=== PATIENT | male | born 1995 | race Caucasian/White ===

== ENCOUNTER 2022-03-10 13:13 | Emergency (ER) | payer BC, SELFPAY ==
[2022-03-10 13:15] VITALS: BP 151/87; PULSE 75; RESP 16; TEMP 36.8; O2SAT 98
--- NOTE | 2022-03-10 13:30 | DI.CT_ITS ---
Exam(s) CT ABDOMEN PELVIS WO EXAM: CT ABDOMEN PELVIS WO CLINICAL HISTORY: RLQ pain. TECHNIQUE: Imaging Protocol: Axial computed tomography images with coronal and sagittal reformatted images were created and reviewed. COMPARISON: No exams were available for comparison FINDINGS: ABDOMEN: Lung Bases: Normal where visualized. Liver: Normal density. No measurable mass. Gallbladder and biliary tract: No radiodense calculus or biliary ductal dilation. Pancreas: Normal density, no abnormal calcifications or inflammatory process. Spleen: Normal. Kidneys: Normal size, contour and axis.No radiodense stones or obstructive uropathy. No masses seen. Adrenal glands: No mass is seen. Lymph nodes: Within normal limits. Abdominal Aorta: Abdominal portion non-dilated. PELVIS: Bladder:Symmetric distention, no gross wall thickening. Bowel: No obstruction or bowel wall thickening. Appendix is unremarkable. Peritoneal cavity: No ascites, collection or mesenteric inflammatory response. No free air. Reproductive organs: Within normal limits. Bones: Within normal limits. Soft Tissues: Within normal limits. IMPRESSION: 1. Unremarkable CT scan of the abdomen and pelvis. 2. Results of this exam have been verbally communicated with provider. RADIATION DOSE DELIVERED: 1,021.4mGy.cm Total DLP DATA REPOSITORY: All CT scans at this facility are submitted to the National Radiology Data Registry (NRDR) Dose Index Registry (DIR) with the [employer] (A[employer]). RADIATION OPTIMIZATION: All CT scans at this facility use at least one of these dose optimization te chniques: automated exposure control; mA and/or kV adjustment per patient size (includes targeted exa ms where dose is matched to clinical indication); or iterative reconstruction.
[2022-03-10] MEDS: Normal Saline 1,000 ML 1000 ML IV (13:50)
[2022-03-10] MEDS: Ketorolac 15 MG/ML VIAL IVP (13:50)
[2022-03-10 13:51] LABS: Abs Immature Grans 0.01 10^3/uL (0.0-0.06); Absolute Basophil Count 0.04 10^3/uL (0.0-0.2); Absolute Eosinophil Count 0.05 10^3/uL (0.0-0.7); Absolute Lymphocyte Count 2.02 10^3/uL (1.2-3.4); Absolute Monocyte Count 0.43 10^3/uL (0.1-0.8); Absolute Neutrophil Count 3.73 10^3/uL (1.2-6.7); Basophils % 0.6; Eosinophils % 0.8; HCT 49.4 % (40.0-50.0); HGB 16.4 g/dL (13.5-17.5); Immature Grans % 0.2; Lymphocytes % 32.2; MCH 29.7 pg (27.0-33.0); MCHC 33.2 % (32.0-36.0); MCV 89 fL (80-95); MPV 9.4 fL (8.0-11.0); Monocytes % 6.8; Neutrophils % 59.4; Platelet Count 269 10^3/uL (130-400); RBC 5.53 10^6/uL (4.36-5.78); RDW-SD 42.8 fL; WBC 6.28 10^3/uL (4.4-10.8)
[2022-03-10] MEDS: Ondansetron 4 MG/2 ML VIAL IVP (13:52)
[2022-03-10] MEDS: Breeza Beverage 473 ML BTL PO ×2 (14:02→14:03)
[2022-03-10 14:14] LABS: ALT 54 U/L (16-63); AST 25 U/L (15-37); Albumin 4.8 g/dL (3.4-5.0); Alkaline Phosphatase 60 U/L (46-116); Anion Gap 8.2 mmol/L (3-11); BUN 19 mg/dL (7-18); Bilirubin, Total 0.8 mg/dL (0.2-1.0); CO2 30.8 mmol/L (21.0-32.0); CREATININE 1.2 mg/dL (0.70-1.30); Calcium 9.3 mg/dL (8.5-10.1); Chloride 100 mmol/L (98-107); Glucose 139 mg/dL (74-106); Lipase 56 U/L (73-393); Potassium 4.4 mmol/L (3.5-5.1); Sodium 139 mmol/L (136-145); Total Protein 8.4 g/dL (6.4-8.2)
--- NOTE | 2022-03-10 15:12 | ED.GENADUL_ITS ---
Discharge Plan Disposition Patient Disposition: HOME Condition: Good Discharge Details Clinical Impression: Abdominal pain, right lower quadrant Primary Care Provider: Matilda Choi ED Provider: Cheyenne Holder Home Meds and New Rx's Prescriptions: Continued ondansetron 4 mg tablet,disintegrating 4 mg PO Q6H PRN (Reason: nausea and vomiting) Qty: 7 0RF Rx Instructions: May take 1 tab every 6 hours as needed for nausea Discontinued metronidazole 500 mg tablet 1 tab PO BID ciprofloxacin HCl 500 mg tablet 1 tab PO BID Discharge Instructions Instructions: Abdominal Pain (ED) Additional Instructions: Your labs and imaging are reassuring here. No evidence of appendicitis or ot acute intra-abdominal issues. Please encourage hydration. You may use Tylenol and/or ibuprofen. He also may find heat or ice to help with discomfort. Please follow-up with primary care next week for reevaluation. If you develop vomiting, inability stay hydrated, increased pain, fever/chills or other new/worsening symptom please seek care urgently once again. Referrals: Matilda Choi [Primary Care Provider] - Discharge Data Discharge Date/Time-TO BE ENTERED AT DEPARTURE: 03/10/22 16:09 Medical Decision Making <Fidel Pitts NP - Last Filed: 03/14/22 15:17> Patient presenting to the emergency department for chief complaint of abdominal pain. He stated that yesterday it started out as generalized abdominal pain but now has migrated to the right lower quadrant. He states low appetite and some nausea but no vomiting no fevers no chills. Patient was seen by his primary care provider and they put him on Cipro and Flagyl yesterday while attempting to get an outpatient CT scan. Due to worsening discomfort primary care provider sent patient to the emergency department for evaluation. He does state that any bumps or rapid movement also causes increase in pain and discomfort. Physical exam does show tenderness to McBurney's point otherwise no CVA tenderness and exam otherwise unremarkable. Plan to perform standard abdominal screening labs along with CT imaging for further evaluation and concern of possible appendicit is versus other intra-abdominal pathology. Patient given Zofran, Toradol, and fluids pending results. Pending CT scan reviewed labs and CBC is unremarkable, CMP shows slight elevation of BUN and glucose with mild elevation of protein but lipase is normal, still pending urinalysis and otherwise unremarkable labs. Lab Data Lab results reviewed: Yes I reviewed the patient's lab results. <RAFAELA Knowles - Last Filed: 03/10/22 16:00> Patient presenting to the emergency department for chief complaint of abdominal pain. He stated that yesterday it started out as generalized abdominal pain but now has migrated to the right lower quadrant. He states low appetite and some nausea but no vomiting no fevers no chills. Patient was seen by his primary care provider and they put him on Cipro and Flagyl yesterday while attempting to get an outpatient CT scan. Due to worsening discomfort primary care provider sent patient to the emergency department for evaluation. He does state that any bumps or rapid movement also causes increase in pain and discomfort. Physical exam does show tenderness to McBurney's point otherwise no CVA tenderness and exam otherwise unremarkable. Plan to perform standard abdominal screening labs along with CT imaging for further evaluation and concern of possible a ppendicitis versus other intra-abdominal pathology. Patient given Zofran, Toradol, and fluids pending results. Pending CT scan reviewed labs and CBC is unremarkable, CMP shows slight elevation of BUN and glucose with mild elevation of protein but lipase is normal, still pending urinalysis and otherwise unremarkable labs. Care transition myself from Fidel Pitts NP. Please see his initial note regarding history, presentation and exam. In brief, patient is a pleasant 26-year-old gentleman presents today with right lower quadrant pain. Initially by his primary care, started on Ciprofloxacin and Flagyl. At the time I assumed care, imaging and urinalysis pending. Labs have been reviewed as without significant abnormality. Contacted by the radiologist who advised no evidence of acute appendicitis or other acute intra-abdominal pathology. Discussed findings with the patient. Urinalysis is clear without plan evidence of infection. Encourage hydration. He feels that being in a more upright position is beneficial. He finds that leaning back. He is particularly painful. Of note, while in the position patient is holding his head up and have his abdominal pain gauge. I did advise that this could potentially be musculoskeletal although no inciting event was identified. Advised that he use Tylenol and/or ibuprofen as needed for discomfort. Heat and/or ice. Return precautions were discussed. Advise follow-up with primary care next week. All his questions and concerns were addressed and he is agreement this plan. HPI <Fidel Pitts NP - Last Filed: 03/14/22 15:17> General Mode of arrival: ambulatory . Date/Time Provider Initiated Documentation: 03/10/22 13:20 . Limitations to Documentation: no limitations . Information obtained by: patient and RN notes reviewed . History of Present Illness 26 year old M presents to the emergency department with the chief complaint of Abdominal pain, described as moderate, with intensity rated at 6. Quality is described as aching, and is localized to the abdomen. Patient reports no radiation. Patient started experiencing this day(s) (2) and it has been constant. No relieving factors improve symptom(s), No exacerbating factors reported . Patient notes denies chest pain, fever/chills and shortness of breath. Patient did receive the following treatments prior to arrival, none Related Data Home Medications Medication Instructions Recorded Confirmed ondansetron 4 mg disintegrating 4 mg PO Q6H PRN nausea and 03/02/22 03/10/22 tablet vomiting #7 tabs Previous Rx's Medication Instructions Recorded ondansetron 4 mg disintegrating 4 mg PO Q6H PRN nausea and 03/02/22 tablet vomiting #7 tabs Allergies Allergy/AdvReac Type Severity Reaction Status Date / Time No Known Allergies Allergy Verified 03/10/22 13:20 General Stated Complaint: Abd Prob ANISH: 3 Review of Systems <Fidel Pitts NP - Last Filed: 03/14/22 15:17> Constitutional Constitutional: Denies chills, Denies fever(s) and Reports poor appetite Cardiovascular Cardiovascular: Denies chest pain and Denies dyspnea Respiratory Respiratory: Denies cough and Denies dyspnea Gastrointestinal Gastrointestinal: Reports as per HPI, Reports abdominal pain, Denies melena, Denies change in bowel habits, Reports nausea and Denies vomiting Genitourinary Genitourinary: Denies hematuria, Denies difficulty urinating, Denies urinary hesitancy, Denies urinary incontinence and Denies urinary urgency Integumentary/Breasts Skin/Breast: Denies rash PFSH <Fidel Pitts NP - Last Filed: 03/14/22 15:17> All Active Problems (Updated 03/10/22 @ 15:58 by RAFAELA Knowles) Abdominal pain, right lower quadrant (Acute) Social History Smoking/Tobacco Use Status: Never Smoking risk assessment performed?: Yes Alcohol Intake: current Alcohol Intake frequency: holidays/special occasions only Substance use type: does not use Do you feel safe at home: Yes Do you feel safe in your relationship?: Yes Exam <Fidel Pitts NP - Last Filed: 03/14/22 15:17> Const General: cooperative Orientation: alert, awake and oriented x3 Resp Effort & Inspection: normal respiratory effort and able to speak in complete sentences Auscultation: clear to auscultation bilaterally Cardio Rate: regular rate Rhythm: regular rhythm Heart Sounds: S1 normal and S2 normal GI Palpation: soft, no hepatosplenomegaly, not firm, no guarding, no masses, no pulsatile masses, not rigid, no splenomegaly and tender in the RLQ and at McBurney's point; Stahl's sign negative, psoas sign negative, with no rebound tenderness and Rovsing's sign negative Auscultation: normal bowel sounds Back/Spine/Pelvis Back: no CVA tenderness Neuro General: patient alert, patient awake, patient oriented x3, gait normal and moves all extremities Course <Fidel Pitts NP - Last Filed: 03/14/22 15:17> Vital Signs Vital signs: Vital Signs Temperature 36.8 C 03/10/22 13:15 Pulse 75 03/10/22 13:15 Respiratory Rate 16 03/10/22 13:15 Blood Pressure 151/87 H 03/10/22 13:15 Pulse Oximetry 98 03/10/22 13:15 Temperature 36.8 C 03/10/22 13:15 Temperature Source Temporal Artery Scan 03/10/22 13:15 Pulse 75 03/10/22 13:15 Respiratory Rate 16 03/10/22 13:15 Respiratory Effort Non-Labored 03/10/22 13:19 Blood Pressure 151/87 H 03/10/22 13:15 Blood Pressure Position Sitting 03/10/22 13:15 Pulse Oximetry 98 03/10/22 13:15 Oxygen Delivery Method Room Air 03/10/22 13:15 Oxygen Flow Rate 0 03/10/22 13:15 Pain Level 6 03/10/22 13:15 Lab/Test Results Lab/Test Results: Laboratory Tests Range/Units 03/10/22 03/10/22 13:35 13:35 WBC (4.4-10.8) 10^3/uL 6.28 RBC (4.36-5.78) 10^6/uL 5.53 Hgb (13.5-17.5) g/dL 16.4 Hct (40.0-50.0) % 49.4 MCV (80-95) fL 89 MCH (27.0-33.0) pg 29.7 MCHC (32.0-36.0) % 33.2 RDW (11.8-14.1) % 13.0 Plt Count (130-400) 10^3/uL 269 MPV (8.0-11.0) fL 9.4 Immature Gran % 0.2 Neutrophils % 59.4 Lymphocytes % 32.2 Monocytes % 6.8 Eosinophils % 0.8 Basophils % 0.6 Nucleated RBC % (0.0-0.3) % 0.0 Absolute Neutrophils (1.2-6.7) 10^3/uL 3.73 Absolute Lymphocytes (1.2-3.4) 10^3/uL 2.02 Absolute Monocytes (0.1-0.8) 10^3/uL 0.43 Absolute Eosinophils (0.0-0.7) 10^3/uL 0.05 Absolute Basophils (0.0-0.2) 10^3/uL 0.04 Sodium (136-145) mmol/L 139 Potassium (3.5-5.1) mmol/L 4.4 Chloride (98-107) mmol/L 100 Carbon Dioxide (21.0-32.0) mmol/L 30.8 Anion Gap (3-11) mmol/L 8.2 BUN (7-18) mg/dL 19 H Creatinine (0.70-1.30) mg/dL 1.2 Estimated GFR/1.73 m2 (mL/min/1.73m2) >= 60.00 Glucose (74-106) mg/dL 139 H Calcium (8.5-10.1) mg/dL 9.3 Magnesium (1.8-2.4) mg/dL 2.0 Total Bilirubin (0.2-1.0) mg/dL 0.8 AST (15-37) U/L 25 ALT (16-63) U/L 54 Alkaline Phosphatase (46-116) U/L 60 Total Protein (6.4-8.2) g/dL 8.4 H Albumin (3.4-5.0) g/dL 4.8 Lipase (73-393) U/L 56 Sign Out <Fidel Pitts NP - Last Filed: 03/14/22 15:17> Sign Out Data: Sign Out Comment: Patient pending CT imaging and urinalysis prior to dispo. Last updated by Fidel Pitts NP at 03/10/22 15:40 PAWSS <Fidel Pitts NP - Last Filed: 03/14/22 15:17> Have you Been Recently Intoxicated or Drunk Within the Last 30 days?: No Have you Ever Experienced Previous Episodes of Alcohol Withdrawal?: No Have you ever Experienced Withdrawal Seizures?: No Have you ever Experienced Delirium Tremens(DT)s?: No Have you ever undergone Alcohol Rehabilitation Treatment (i.e, inpt ot outpatient treatment programs)?: No Have you ever Experienced Blackouts?: No Have you ever Combined Alcohol with other Downers within the last 90 days?: No Have you ever Combined Alcohol with any other Substance of Abuse during the last 90 days?: No Result: 0 <RAFAELA Knowles - Last Filed: 03/10/22 16:00> Result: 0
[2022-03-10 15:40] LABS: Bilirubin Negative (Negative); Blood Negative (Negative); Clarity Clear (Clear); Glucose Negative (Negative); Ketones Negative (Negative); Leukocyte Esterase Negative (Negative); Nitrite Negative (Negative); Specific Gravity 1.015 (1.005-1.025); Urobilinogen 0.2 EU/dL (Up TO 0.2)
[2022-03-10 16:05] VITALS: BP 128/80; PULSE 74; RESP 17; TEMP 36.6; O2SAT 99
== END 2022-03-10 16:09 | disposition home or self-care (01) ==
PROVIDERS: Nurse Practitioner Family; Emergency Provider Physician Assistant; PCP Internal Medicine
DX: R11.0 Nausea; R63.0 Anorexia; R10.31 Right lower quadrant pain
CPT/HCPCS: 36415; 80053; 83690; 96361; 96374; 96375; 99284; 74176; 81003; 83735; 85025; J1885; J2405; J3490